=== PATIENT | female | born 1955 | race Caucasian/White ===

== ENCOUNTER 2017-01-19 10:28 | Day surgery (SDC) | payer BC ==
[~2017-01-19] VITALS: Ht 162.6 cm; Wt 68.0 kg
[~2017-01-19 10:28] MED LIST: ELAVIL10 MG PO; ENDOCET 5-3251 EACH PO; FIORICET,ESG1 TABLET PO; IBUPROFEN800 MG PO; LEXAPRO10 MG PO; LEXAPRO20 MG PO; NITROFURANTOIN100 M3 PO; NORVASC5 MG PO; OMEPRAZOLE40 M1 PO; SONATA10 MG PO; TRAMADOL HCL50 MG PO; VITAMIN D31000 UNI2 PO
[2017-01-19 10:44] VITALS: BP 132/69
[2017-01-19 16:55] VITALS: BP 139/88
[2017-01-19 19:38] VITALS: BP 137/82
[2017-01-19 23:10] VITALS: BP 124/70
[2017-01-20 03:17] VITALS: BP 107/65
[2017-01-20 07:45] VITALS: BP 118/77
[2017-01-20] MEDS ORDERED: ENDOCET 5-3251 EACH PO (09:42)
[2017-01-20 11:25] VITALS: BP 113/68
== END 2017-01-20 11:50 | disposition home or self-care (01) ==
LOC: SDC 10:28 → 2EAST 15:38 → 2SOUTH 15:38 → SDC 16:10 → 2EAST 16:42
DX: M67.88 Other specified disorders of synovium and tendon, other site (principal); M70.61 Trochanteric bursitis, right hip; G89.29 Other chronic pain; M54.5 Low back pain; M25.551 Pain in right hip; W19.XXXS Unspecified fall, sequela; F41.9 Anxiety disorder, unspecified; Z87.11 Personal history of peptic ulcer disease; K90.41 Non-celiac gluten sensitivity; Z82.49 Family history of ischemic heart disease and other diseases of the circulatory system; Z83.3 Family history of diabetes mellitus
CPT/HCPCS: C1713; G0378; J0690; J2250; J2270; J2405; J7120; S0020